=== PATIENT | male | born 1960 | race Caucasian/White ===

== ENCOUNTER 2022-12-10 14:17 | Outpatient (CLI) | payer SELFPAY | END 2022-12-10 23:59 | disposition EMS.NT | LOC: EMS 14:17 | DX: R10.32 Left lower quadrant pain (principal); M79.662 Pain in left lower leg; V59.40XA Driver of pick-up truck or van injured in collision with unspecified motor vehicles in traffic accident, initial encounter; Y92.413 State road as the place of occurrence of the external cause ==